=== PATIENT | male | born 1970 | race Caucasian/White ===

== ENCOUNTER 2017-01-17 23:45 | Inpatient (IN) | payer MEDICARE, MEDICAID ==
[~2017-01-17] VITALS: Ht 172.7 cm; Wt 72.1 kg
[~2017-01-17 23:45] MED LIST: OLAN10TA3 PO
[2017-01-18 02:28] VITALS: BP 121/68
[2017-01-18] MEDS ORDERED: HALOPERIDOL 5 MG TABLET PO PRN (02:30)
[2017-01-18] MEDS ORDERED: ZOLPIDEM TARTRATE 10 MG TABLET PO PRN (02:30)
[2017-01-18] MEDS ORDERED: PNEUMOCOCCAL VACCINE POLYVALENT 0.5 ML VIAL [PPSV23] IM ONE (02:45)
[2017-01-18] MEDS ORDERED: INFLUENZA VIRUS VACCINE QVS 2016-17 (3YR+)/PF 60 MCG/0.5 ML SYRINGE IM ONE (02:45)
[2017-01-18 07:23] LABS: BASOPHILS % (AUTO) 0.8 % (0.0-2.0); EOSINOPHILS % (AUTO) 3.5 % (1.0-6.0); HEMATOCRIT 44.6 % (41-53); HEMOGLOBIN 14.6 g/dL (13.5-17.5); LYMPHOCYTES # (AUTO) 1.1 K/uL (1.0-4.8); MEAN CORPUSCULAR HEMOGLOBIN 29.8 pg (26.0-34.0); MEAN CORPUSCULAR HGB CONC 32.7 G/dL (31.0-37.0); MEAN CORPUSCULAR VOLUME 91 fL (80-100); MONOCYTES # (AUTO) 0.4 K/uL (0.1-1.0); MONOCYTES % (AUTO) 9.3 % (2.0-9.0); NEUTROPHILS # (AUTO) 2.9 K/uL (1.8-7.7); NEUTROPHILS % (AUTO) 63.4 % (40.0-70.0); PLATELET COUNT (AUTO) 291 K/uL (150-450); RED CELL DISTRIBUTION WIDTH 13.5 % (11.5-14.5); WHITE BLOOD COUNT (AUTO) 4.6 K/uL (4.5-11.0)
[2017-01-18 09:07] VITALS: BP 113/78
[2017-01-18 09:41] LABS: ALANINE AMINOTRANSFERASE 37 U/L (12-78); ALBUMIN 3.6 g/dL (3.4-5.0); ANION GAP 1 mmol/L (8-16); ASPARTATE AMINOTRANSFERASE 41 U/L (15-37); BILIRUBIN,TOTAL 0.4 mg/dL (0.1-1.0); CALCIUM, TOTAL 8.4 mg/dL (8.8-10.5); CARBON DIOXIDE 28 mmol/L (22-29); CHLORIDE 104 mmol/L (98-107); CREATININE 0.69 mg/dL (0.60-1.30); GLOMERULAR FILTR. RATE CALC > 60 mL/min (>60); SODIUM SERUM 133 mmol/L (136-145); TOTAL PROTEIN, SERUM 6.4 g/dL (6.4-8.2); UREA NITROGEN, BLOOD 12 mg/dL (7-18)
[2017-01-18 12:32] LABS: APPEARANCE,URINE CLEAR (CLEAR); GLUCOSE, URINE (UA) NEGATIVE (NEGATIVE); KETONES,URINE NEGATIVE (NEGATIVE); LEUKOCYTE ESTERASE ,URINE NEGATIVE (NEGATIVE); OCCULT BLOOD,URINE NEGATIVE (NEGATIVE); PH,URINE 6.5 (5.0-8.0); PROTEIN,URINE NEGATIVE (NEGATIVE)
[2017-01-18 12:49] LABS: ADD UA MICROSCOPIC NO
[2017-01-18] MEDS: PALIPERIDONE 6 MG ER TABLET PO SCH ×2 (14:45→20:18)
[2017-01-18 19:14] VITALS: BP 116/73
[2017-01-19 07:09] LABS: ANION GAP 5 mmol/L (8-16); CALCIUM, TOTAL 8.6 mg/dL (8.8-10.5); CARBON DIOXIDE 30 mmol/L (22-29); CHLORIDE 104 mmol/L (98-107); CHOL/HDL RATIO 2.8 (4.2-7.3); CREATININE 0.72 mg/dL (0.60-1.30); GLOMERULAR FILTR. RATE CALC > 60 mL/min (>60); SODIUM SERUM 139 mmol/L (136-145); THYROID STIMULATING HORMONE 1.02 uIU/mL (0.36-3.74); UREA NITROGEN, BLOOD 11 mg/dL (7-18)
[2017-01-19 08:15] VITALS: BP 117/73
[2017-01-19 08:20] LABS: HEMOGLOBIN A1C 5.2 % (4.5-6.2)
[2017-01-19] MEDS: NICOTINE 21 MG/24 HOUR PATCH TD SCH (15:08)
[2017-01-19 16:47] VITALS: BP 119/75
[2017-01-19] MEDS: PALIPERIDONE 6 MG ER TABLET PO SCH (21:13)
[2017-01-20 03:33] VITALS: BP 107/63
[2017-01-20] MEDS: LORazepam 2 MG TABLET PO PRN ×2 (03:35→18:19)
[2017-01-20] MEDS ORDERED: IBUPROFEN 600 MG TABLET PO PRN (07:45)
[2017-01-20] MEDS ORDERED: BISACODYL 5 MG EC TABLET PO PRN (07:45)
[2017-01-20] MEDS ORDERED: ACETAMINOPHEN 325 MG TABLET PO PRN (07:45)
[2017-01-20 08:41] VITALS: BP 112/76
[2017-01-20] MEDS ORDERED: PALIPERIDONE PALMITATE 234 MG/1.5 ML SYRINGE IM ONE (09:00)
[2017-01-20] MEDS: NICOTINE 21 MG/24 HOUR PATCH TD SCH (09:10)
[2017-01-20 10:26] LABS: HEPATITIS Bs ANTIGEN SCREEN P Negative (Negative); HEPATITIS C AB SCREEN <0.1 s/co ratio (0.0-0.9)
[2017-01-20 16:42] VITALS: BP 100/72
[2017-01-21] MEDS: NICOTINE 21 MG/24 HOUR PATCH TD SCH (08:04)
[2017-01-21 08:26] VITALS: BP 111/64
[2017-01-21] MEDS: LORazepam 2 MG TABLET PO PRN (16:52)
[2017-01-21 17:00] VITALS: BP 112/62
[2017-01-21] MEDS: SIMETHICONE 80 MG CHEWABLE TABLET CHEW PRN (20:26)
[2017-01-22] MEDS: NICOTINE 21 MG/24 HOUR PATCH TD SCH (08:28)
[2017-01-22 09:21] VITALS: BP 122/71
[2017-01-22] MEDS: LORazepam 2 MG TABLET PO PRN (14:28)
[2017-01-22 16:55] VITALS: BP 102/56
[2017-01-23 08:30] VITALS: BP 110/66
[2017-01-23] MEDS: NICOTINE 21 MG/24 HOUR PATCH TD SCH (10:53)
[2017-01-23] MEDS: LORazepam 2 MG TABLET PO PRN (16:07)
[2017-01-23 20:48] VITALS: BP 109/60
[2017-01-24 08:00] VITALS: BP 105/73
[2017-01-24] MEDS: NICOTINE 21 MG/24 HOUR PATCH TD SCH (08:50)
[2017-01-24] MEDS: SIMETHICONE 80 MG CHEWABLE TABLET CHEW PRN (12:36)
[2017-01-24] MEDS: LORazepam 2 MG TABLET PO PRN (16:11)
[2017-01-24 16:46] VITALS: BP 127/65
[2017-01-25 04:26] VITALS: BP 109/61
[2017-01-25 08:00] VITALS: BP 119/68
[2017-01-25 17:00] VITALS: BP 104/59
[2017-01-26 00:34] VITALS: BP 103/69
[2017-01-26] MEDS: LORazepam 2 MG TABLET PO PRN (00:38)
== END 2017-01-26 10:30 | disposition home or self-care (01) | DRG 885 ==
LOC: 3EX 23:45
PROVIDERS: ADMIT Psychiatry & Neurology Psychiatry; ATTEND Psychiatry & Neurology Psychiatry
DX: F20.0 Paranoid schizophrenia (principal); E87.1 Hypo-osmolality and hyponatremia; F12.90 Cannabis use, unspecified, uncomplicated; K59.00 Constipation, unspecified; R51 Headache; Z72.0 Tobacco use; Z72.89 Other problems related to lifestyle; Z28.21 Immunization not carried out because of patient refusal
CPT/HCPCS: 80074; 80307; 82306; 82607; 82746; 83036; 84443; 86592; 87081

== ENCOUNTER 2017-02-05 14:38 | Inpatient (IN) | payer MEDICARE, MEDICAID ==
[~2017-02-05] VITALS: Ht 172.7 cm; Wt 72.2 kg
[2017-02-05 15:58] VITALS: BP 108/74
[2017-02-05] MEDS ORDERED: LORazepam 2 MG TABLET PO PRN (16:15)
[2017-02-05] MEDS ORDERED: ACETAMINOPHEN 325 MG TABLET PO PRN (16:15)
[2017-02-05] MEDS ORDERED: PROMETHAZINE HCL 25 MG TABLET PO PRN (16:15)
[2017-02-05] MEDS ORDERED: TUBERCULIN, PURIFIED PROTEIN DERIVATIVE 5 TU/0.1 ML SYG ID ONE (16:15)
[2017-02-05] MEDS ORDERED: OLANZapine 5 MG RAPDIS TABLET PO PRN (16:15)
[2017-02-05] MEDS ORDERED: GuaiFENesin/D-METHORPHAN [SUGAR-FREE] 200-20MG/10 ML SYRUP UDCUP PO PRN (16:15)
[2017-02-05] MEDS ORDERED: MAG HYDROX/AL HYDROX/SIMETH ES 30 ML SUSPENSION UDCUP PO PRN (16:15)
[2017-02-05] MEDS ORDERED: ZOLPIDEM TARTRATE 10 MG TABLET PO PRN (16:15)
[2017-02-05] MEDS ORDERED: HydrOXYzine PAMOATE 50 MG CAPSULE PO PRN (16:15)
[2017-02-05] MEDS ORDERED: LOPERAMIDE HCL 2 MG CAPSULE PO PRN (16:15)
[2017-02-05] MEDS ORDERED: MAGNESIUM HYDROXIDE SUSPENSION 30 ML UDCUP PO PRN (16:15)
[2017-02-05] MEDS ORDERED: PALI234D IM (16:35)
[2017-02-05 18:16] VITALS: BP 105/75
[2017-02-05] MEDS: THIAMINE HCL 100 MG TABLET PO SCH (18:33)
[2017-02-05] MEDS: OLANZapine 5 MG RAPDIS TABLET PO SCH (20:40)
[2017-02-06 06:34] VITALS: BP 102/70
[2017-02-06 08:25] LABS: BASOPHILS % (AUTO) 0.9 % (0.0-2.0); EOSINOPHILS % (AUTO) 3.7 % (1.0-6.0); HEMATOCRIT 46.8 % (41-53); HEMOGLOBIN 15.3 g/dL (13.5-17.5); LYMPHOCYTES # (AUTO) 1.2 K/uL (1.0-4.8); LYMPHOCYTES % (AUTO) 25.4 % (22.0-44.0); MEAN CORPUSCULAR HEMOGLOBIN 29.7 pg (26.0-34.0); MEAN CORPUSCULAR HGB CONC 32.7 G/dL (31.0-37.0); MEAN CORPUSCULAR VOLUME 91 fL (80-100); MONOCYTES # (AUTO) 0.5 K/uL (0.1-1.0); MONOCYTES % (AUTO) 9.7 % (2.0-9.0); NEUTROPHILS # (AUTO) 2.9 K/uL (1.8-7.7); NEUTROPHILS % (AUTO) 60.3 % (40.0-70.0); PLATELET COUNT (AUTO) 341 K/uL (150-450); RED BLOOD CELL COUNT(AUTO) 5.15 MIL/uL (4.50-5.90); RED CELL DISTRIBUTION WIDTH 13.3 % (11.5-14.5); WHITE BLOOD COUNT (AUTO) 4.8 K/uL (4.5-11.0)
[2017-02-06 08:34] VITALS: BP 108/71
[2017-02-06 08:41] LABS: HEMOGLOBIN A1C 5.2 % (4.5-6.2)
[2017-02-06 08:49] LABS: ALANINE AMINOTRANSFERASE 35 U/L (12-78); ALBUMIN 3.6 g/dL (3.4-5.0); ANION GAP 8 mmol/L (8-16); ASPARTATE AMINOTRANSFERASE 20 U/L (15-37); BILIRUBIN,TOTAL 0.5 mg/dL (0.1-1.0); CALCIUM, TOTAL 8.7 mg/dL (8.8-10.5); CARBON DIOXIDE 28 mmol/L (22-29); CHLORIDE 105 mmol/L (98-107); CREATININE 0.75 mg/dL (0.60-1.30); GLOMERULAR FILTR. RATE CALC > 60 mL/min (>60); POTASSIUM 3.9 mmol/L (3.5-5.1); SODIUM SERUM 141 mmol/L (136-145); THYROID STIMULATING HORMONE 1.02 uIU/mL (0.36-3.74); TOTAL PROTEIN, SERUM 6.7 g/dL (6.4-8.2); UREA NITROGEN, BLOOD 13 mg/dL (7-18)
[2017-02-06] MEDS: THIAMINE HCL 100 MG TABLET PO SCH ×2 (09:25→16:41)
[2017-02-06] MEDS: MULTIVITAMINS WITH MINERALS, THERAPEUTIC TABLET PO SCH (09:25)
[2017-02-06] MEDS: NALTREXONE HCL 50 MG TABLET PO SCH (09:25)
[2017-02-06] MEDS: FOLIC ACID 1 MG TABLET PO SCH (09:26)
[2017-02-06] MEDS: FLUoxetine HCL 20 MG CAPSULE PO SCH (09:26)
[2017-02-06] MEDS: NICOTINE 21 MG/24 HOUR PATCH TD SCH (09:37)
[2017-02-06 16:06] VITALS: BP 108/77
[2017-02-06] MEDS: OLANZapine 5 MG RAPDIS TABLET PO SCH (20:31)
[2017-02-07] MEDS: MULTIVITAMINS WITH MINERALS, THERAPEUTIC TABLET PO SCH (08:17)
[2017-02-07] MEDS: THIAMINE HCL 100 MG TABLET PO SCH ×2 (08:17→16:41)
[2017-02-07] MEDS: FOLIC ACID 1 MG TABLET PO SCH (08:17)
[2017-02-07] MEDS: NALTREXONE HCL 50 MG TABLET PO SCH (08:17)
[2017-02-07] MEDS: FLUoxetine HCL 20 MG CAPSULE PO SCH (08:17)
[2017-02-07] MEDS: NICOTINE 21 MG/24 HOUR PATCH TD SCH (08:20)
[2017-02-07 08:31] VITALS: BP 111/69
[2017-02-07] MEDS ORDERED: SIMETHICONE 80 MG CHEWABLE TABLET CHEW PRN (13:00)
[2017-02-07] MEDS ORDERED: PALIPERIDONE PALMITATE 156 MG/ML SYRINGE IM ONE (13:15)
[2017-02-07 16:14] VITALS: BP 112/73
[2017-02-07] MEDS: OLANZapine 5 MG RAPDIS TABLET PO SCH (20:35)
[2017-02-08 06:29] VITALS: BP 118/73
[2017-02-08 08:29] VITALS: BP 111/61
[2017-02-08] MEDS: THIAMINE HCL 100 MG TABLET PO SCH ×2 (08:59→16:30)
[2017-02-08] MEDS: FLUoxetine HCL 20 MG CAPSULE PO SCH (08:59)
[2017-02-08] MEDS: FOLIC ACID 1 MG TABLET PO SCH (08:59)
[2017-02-08] MEDS: MULTIVITAMINS WITH MINERALS, THERAPEUTIC TABLET PO SCH (08:59)
[2017-02-08] MEDS: NALTREXONE HCL 50 MG TABLET PO SCH (08:59)
[2017-02-08] MEDS: NICOTINE 21 MG/24 HOUR PATCH TD SCH (09:00)
[2017-02-08] MEDS ORDERED: FLUO-191 PO (10:55)
[2017-02-08] MEDS ORDERED: PALI234D IM (10:55)
[2017-02-08] MEDS ORDERED: NALT50 PO (10:55)
[2017-02-08] MEDS ORDERED: PALIPERIDONE 3 MG ER TABLET PO PRN (11:00)
[2017-02-08 16:14] VITALS: BP 109/75
[2017-02-09 06:15] VITALS: BP 100/70
[2017-02-09] MEDS: FLUoxetine HCL 20 MG CAPSULE PO SCH (08:25)
[2017-02-09] MEDS: THIAMINE HCL 100 MG TABLET PO SCH (08:25)
[2017-02-09] MEDS: NALTREXONE HCL 50 MG TABLET PO SCH (08:25)
[2017-02-09] MEDS: FOLIC ACID 1 MG TABLET PO SCH (08:25)
[2017-02-09] MEDS: MULTIVITAMINS WITH MINERALS, THERAPEUTIC TABLET PO SCH (08:25)
[2017-02-09] MEDS: NICOTINE 21 MG/24 HOUR PATCH TD SCH (08:28)
[2017-02-09 08:30] VITALS: BP 107/79
[2017-03-07] MEDS ORDERED: PALIPERIDONE PALMITATE 234 MG/1.5 ML SYRINGE IM SCH (09:00)
== END 2017-02-09 13:30 | disposition home or self-care (01) | DRG 885 ==
LOC: B2X 16:05
PROVIDERS: ADMIT Psychiatry & Neurology Psychiatry; ATTEND Psychiatry & Neurology Psychiatry
PROC: GZHZZZZ Group Psychotherapy (ICD-10-PCS; principal; 2017-02-05)
PROC: GZ51ZZZ Individual Psychotherapy, Behavioral (ICD-10-PCS; 2017-02-05)
DX: F25.9 Schizoaffective disorder, unspecified (principal); R45.851 Suicidal ideations; F32.9 Major depressive disorder, single episode, unspecified; F12.90 Cannabis use, unspecified, uncomplicated; F17.200 Nicotine dependence, unspecified, uncomplicated; Z91.19 Patient's noncompliance with other medical treatment and regimen; Z89.011 Acquired absence of right thumb; Z91.5 Personal history of self-harm
CPT/HCPCS: 83036; 84439; 84443; 86592; 87081

== ENCOUNTER 2021-06-03 15:55 | Inpatient (IN) | payer MEDICARE, MEDICAID ==
[~2021-06-03] VITALS: Ht 180.3 cm; Wt 64.6 kg
[~2021-06-03 15:55] MED LIST changes: +FLUO-191 PO; +NALT50TA6 PO; -OLAN10TA3 PO; +PALI234D IM
[2021-06-03] MEDS ORDERED: HALOPERIDOL 5 MG TABLET PO PRN (19:15)
[2021-06-03] MEDS ORDERED: LORazepam 2 MG TABLET PO PRN (19:15)
[2021-06-03] MEDS ORDERED: ZOLPIDEM TARTRATE 10 MG TABLET PO PRN (19:15)
[2021-06-04 00:09] VITALS: BP 136/70
[2021-06-04] MEDS ORDERED: PNEUMOCOCCAL VACCINE POLYVALENT 0.5 ML VIAL [PPSV23] IM. ONE (02:00)
[2021-06-04 08:10] VITALS: BP 115/67
[2021-06-04 16:15] VITALS: BP 120/68
[2021-06-04] MEDS: PALIPERIDONE 6 MG ER TABLET PO SCH (16:35)
[2021-06-05] MEDS ORDERED: PALI6TAB15 PO (08:07)
[2021-06-05 08:13] VITALS: BP 113/69
[2021-06-05] MEDS: PALIPERIDONE 6 MG ER TABLET PO SCH (08:33)
[2021-06-05 08:35] LABS: GLUCOMETER DEV NAME(LOC) BV2X.2; GLUCOSE,POINT OF CARE 121 MG/DL (70-110)
[2021-06-05] MEDS ORDERED: NALTREXONE HCL 50 MG TABLET PO SCH (09:00)
[2021-06-05] MEDS ORDERED: FLUoxetine HCL 20 MG CAPSULE PO SCH (09:00)
== END 2021-06-05 09:59 | disposition home or self-care (01) | DRG 885 ==
LOC: B2X 21:01
PROVIDERS: ADMIT Psychiatry & Neurology Child & Adolescent Psychiatry; ATTEND Psychiatry & Neurology Child & Adolescent Psychiatry
DX: F25.0 Schizoaffective disorder, bipolar type (principal)
CPT/HCPCS: 82962